=== PATIENT | male | born 1955 | race Caucasian/White ===

== ENCOUNTER 2017-04-22 04:07 | Inpatient (IN) | payer MEDICARE ==
[~2017-04-22] VITALS: Ht 165.1 cm; Wt 98.1 kg
[2017-04-22] MEDS ORDERED: MORPHINE SULFATE 4 MG/ML, 1ML IVPush PRN ×2 (04:30→06:00)
[2017-04-22] MEDS ORDERED: ONDANSETRON 2MG/ML, 2ML IVPush ONE (04:30)
[2017-04-22] MEDS ORDERED: morphine SULFATE 10 MG/ML, 1ML ONE (04:33)
[2017-04-22] MEDS ORDERED: ONDANSETRON 2MG/ML, 2ML ONE (04:33)
[2017-04-22 04:47] LABS: HEMATOCRIT 37.1 % (39.2-51.8); HEMOGLOBIN 13.1 g/dL (13.7-18.0); WHITE BLOOD COUNT 4.4 x10^3/uL (3.4-10)
[2017-04-22] MEDS ORDERED: LISI-170 PO (04:51)
[2017-04-22] MEDS ORDERED: METO50TA82 PO (04:51)
[2017-04-22] MEDS ORDERED: ESCI10TA PO (04:52)
[2017-04-22] MEDS ORDERED: SIMV20TA3 PO (04:52)
[2017-04-22] MEDS ORDERED: FINA5TAB4 PO (04:53)
[2017-04-22] MEDS ORDERED: TRAZ50TA18 PO (04:53)
[2017-04-22 04:59] LABS: BLOOD UREA NITROGEN 19 mg/dL (7-18)
[2017-04-22 05:17] LABS: IS PT STATUS REG ER OR PRE ER? YES
[2017-04-22] MEDS ORDERED: ONDANSETRON 2MG/ML, 2ML IVPush PRN ×2 (06:00→11:00)
[2017-04-22 06:29] VITALS: BP 172/88
[2017-04-22] MEDS: SODIUM CHLORIDE 0.9% 1,000 ML IV SCH ×3 (10:39→22:01)
[2017-04-22] MEDS ORDERED: ENOXAPARIN 40 MG/0.4 ML SQ SCH (11:00)
[2017-04-22] MEDS ORDERED: morphine SULFATE 10 MG/ML, 1ML IVPush PRN (11:00)
[2017-04-22] MEDS ORDERED: LORazepam 2 MG/ML, 1ML IVPush PRN (11:00)
[2017-04-22] MEDS: hydrALAzine 20 MG/ML, 1ML IVPush SCH ×2 (12:23→16:48)
[2017-04-22 13:18] VITALS: BP 161/69
[2017-04-22] MEDS: PANTOPRAZOLE 40 MG IV IVPush SCH ×2 (13:22→20:04)
[2017-04-22] MEDS ORDERED: METOPROLOL TARTRATE 50 MG TABLET PO SCH (18:00)
[2017-04-22] MEDS: METOPROLOL TARTRATE 50 MG TABLET PO SCH (18:44)
[2017-04-22] MEDS ORDERED: hydrALAzine 20 MG/ML, 1ML IVPush PRN (19:00)
[2017-04-22 20:04] VITALS: BP 139/73
[2017-04-22] MEDS: LISINOPRIL 20 MG TABLET PO SCH (20:04)
[2017-04-22 20:11] LABS: IS PT STATUS REG ER OR PRE ER? NO
[2017-04-22] MEDS ORDERED: SIMVASTATIN 20 MG TABLET PO SCH (21:00)
[2017-04-22] MEDS ORDERED: TRAZODONE 50MG TABLET PO SCH (21:00)
[2017-04-23 00:54] VITALS: BP 164/75
[2017-04-23] MEDS: SODIUM CHLORIDE 0.9% 1,000 ML IV SCH ×2 (04:39→13:21)
[2017-04-23] MEDS: METOPROLOL TARTRATE 50 MG TABLET PO SCH (06:17)
[2017-04-23 06:33] LABS: ASPARTATE AMINO TRANSFERASE 17 U/L (15-37); BLOOD UREA NITROGEN 12 mg/dL (7-18)
[2017-04-23 07:44] VITALS: BP 148/75
[2017-04-23] MEDS ORDERED: REGADENOSON 0.4 MG/5 ML SYRINGE ONE (08:17)
[2017-04-23] MEDS: PANTOPRAZOLE 40 MG IV IVPush SCH (08:23)
[2017-04-23] MEDS ORDERED: FINASTERIDE 5 MG TABLET PO SCH (09:00)
[2017-04-23] MEDS ORDERED: CITALOPRAM 20 MG TABLET PO SCH (09:00)
[2017-04-23] MEDS ORDERED: LISINOPRIL 20 MG TABLET PO SCH ×2 (09:00→21:00)
[2017-04-23] MEDS: LISINOPRIL 20 MG TABLET PO SCH (10:28)
[2017-04-23] MEDS ORDERED: TRAM50TA2 PO (14:46)
[2017-04-23] MEDS ORDERED: MULT-412 PO (14:46)
[2017-04-23] MEDS ORDERED: ONDA4TAB13 SL ×2 (14:46→15:11)
[2017-04-23] MEDS ORDERED: LISI-170 PO (14:46)
[2017-04-23] MEDS ORDERED: THIA100T10 PO (14:46)
[2017-04-23] MEDS ORDERED: FOLI-17 PO (14:46)
[2017-04-23] MEDS ORDERED: PHOS250T3 PO (14:56)
[2017-04-23] MEDS ORDERED: OMEP-110 PO (15:06)
[2017-04-23 16:18] VITALS: BP 160/85
== END 2017-04-23 16:41 | disposition home or self-care (01) | DRG 391 ==
LOC: ED 05:04 → UNDOADMIN 05:52 → EDIP 05:52 → 5SO 06:19 → DCLOUNGE 04-23 16:25
PROVIDERS: ADMIT Internal Medicine; ATTEND Internal Medicine
DX: K21.9 Gastro-esophageal reflux disease without esophagitis (principal); K85.90 Acute pancreatitis without necrosis or infection, unspecified; E78.5 Hyperlipidemia, unspecified; I10 Essential (primary) hypertension; Z82.49 Family history of ischemic heart disease and other diseases of the circulatory system
CPT/HCPCS: 36415; 71010; 78452; 80048; 80053; 80076; 82040; 83690; 83735; 84100; 84443; 84484; 85025; 93005; 93017; J2405; J2785; A9502; C9113; C9898; J0360; J7030